=== PATIENT | female | born 1970 | race Two or more races ===

== ENCOUNTER → 2018-04-19 | Day surgery (SDC) | payer BC ==
[2018-04-16 13:44] LABS: BASOPHIL % 0.8 % (0-2); PLATELET COUNT 296 x10^3mcL (130-400); RED CELL DISTRIBUTION WIDTH 13.9 % (11.5-14.5)
[2018-04-16 13:57] LABS: ALKALINE PHOSPHATASE 77 U/L (46-116); ALT/SGPT 17 U/L (14-59); AST/SGOT 12 U/L (15-37); BILIRUBIN TOTAL 0.26 mg/dL (0.20-1.00); CALCIUM 8.7 mg/dL (8.5-10.1); CARBON DIOXIDE 28.9 mmol/L (21-32); CHLORIDE SERUM 104 mmol/L (98-107); CREATININE SERUM 0.9 mg/dL (0.6-1.0); GFR1 > 60 mL/min; GLUCOSE SERUM 96 mg/dL (74-106); POTASSIUM SERUM 3.7 mmol/L (3.5-5.1); SODIUM SERUM 140 mmol/L (136-145)
[2018-04-16 14:09] LABS: TOTAL PROTEIN, SERUM 8.7 g/dL (6.4-8.2)
[~2018-04-19] VITALS: Ht 160 cm; Wt 68.0 kg
[2018-04-19 06:49] VITALS: BP 153/82
[2018-04-19 12:08] VITALS: BP 130/78
== END | disposition home or self-care (01) ==
LOC: DS 06:33 → MA 07:00 → DS 07:00 → OR 09:00
PROVIDERS: Surgery
PROC: 0HBU0ZX Excision of Left Breast, Open Approach, Diagnostic (ICD-10-PCS; principal; 2018-04-19 09:00)
DX: D24.2 Benign neoplasm of left breast (principal); D64.9 Anemia, unspecified
CPT/HCPCS: 88344; J0690; J2001; J2405; J2704; J3010; J3490; J7120